=== PATIENT | male | born 1945 | race Caucasian/White ===

== ENCOUNTER 2017-11-22 18:21 | Emergency (ER) | payer MEDICARE ==
[2017-11-22] MEDS: Diphtheria/Tetanus Toxoids,Adult (Td) 0.5 ML SDV IM ONE (19:00)
--- NOTE | 2017-11-22 19:03 | EDM.PDOC ---
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 He states his index finger may not have the movement as before but overall is functioning at possibly 80-90%. He has a missing distal 3rd digit. [place] are [place] in [place] and from [place]. 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 ED EXAM, GENERAL - Physical Exam Exam: See Below Exam Limited By: No Limitations General Appearance: Alert, WD/WN, No Apparent Distress Eye Exam: Bilateral Eye: EOMI, PERRL Ears: Normal External Exam Nose: Normal Inspection Throat/Mouth: Normal Inspection Head: Atraumatic, Normocephalic Neck: Normal Inspection Respiratory/Chest: No Respiratory Distress, Lungs Clear Cardiovascular: Normal Peripheral Pulses, Regular Rate, Rhythm Peripheral Pulses: 2+: Radial (L), Radial (R) Extremities: Other (slightly decreased ROM of left index finger but able to touch thumb and flex and extend and lateral and medial adduction.) Neurological: Alert, Oriented Psychiatric: Normal Affect, Normal Mood ED GENERAL MEDICAL PROCEDURES - Laceration/Wound Repair Left Hand Lac/wound length in cm: 6.5 Appearance: Subcutaneous, Linear, Clean Distal NVT: Neuro & Vascular Intact, Other (possible index figner tendon injury) Anesthetic Type: Local Local Anesthesia - Lidocaine (Xylocaine): 1% Plain Local Anesthetic Volume: 5cc Skin Prep: Providone-Iodine (Betadine), Saline, Sterile Drape Exploration/Debridement/Repair: Wound Explored Closed with: Sutures Suture Size: 4-0 # of Sutures: 8 Suture Type: Nylon, Interrupted, Simple Tetanus Status Addressed: Yes Complications: No Course - Vital Signs Last Recorded V/S: Last Vital Signs Temp 37.4 C 11/22/17 18:22 Pulse 63 11/22/17 18:22 Resp 18 11/22/17 18:22 BP 164/75 H 11/22/17 18:22 Pulse Ox 98 11/22/17 18:22 - Orders/Labs/Meds Orders: Active Orders 24 hr Category Date Time Status Vaccines to be Administered [RC] PER UNIT ROUTINE Care 11/22/17 18:49 Active Meds: Medications Discontinued Medications Generic Name Dose Route Start Last Admin Trade Name Freq PRN Reason Stop Dose Admin Tetanus/Diphtheria Toxoids 0.5 ml 11/22/17 18:48 Tenivac IM 11/22/17 18:49 .ONCE ONE Departure - Departure Time of Disposition: 19:05 Disposition: Home, Self-Care 01 Condition: Good Clinical Impression: Laceration - Discharge Information - Problem List Review Problem List Initiated/Reviewed/Updated: Yes - My Orders Last 24 Hours: My Active Orders 11/22/17 18:49 Vaccines to be Administered [RC] PER UNIT ROUTINE - Assessment/Plan Last 24 Hours: My Active Orders 11/22/17 18:49 Vaccines to be Administered [RC] PER UNIT ROUTINE Plan: Counseled on wound care and follow up with hand surgeon as directed. Patient agrees with follow up hand surgeon as directed. Discussed f/u wound care and if any concerns of infection. Discussed removal of stitches in 7 days. F/u with PCP or in clinic as directed.
== END 2017-11-22 19:15 | disposition home or self-care (01) ==
LOC: LB.ED 18:21
DX: S61.412A Laceration without foreign body of left hand, initial encounter (principal); W26.0XXA Contact with knife, initial encounter
CPT/HCPCS: 12002; 90471; 90714; 99282-25